=== PATIENT | male | born 1955 | race African-American/Black ===

== ENCOUNTER 2022-09-28 19:10 | Emergency (ER) | payer SELFPAY ==
[~2022-09-28] VITALS: Ht 172.7 cm; Wt 77.0 kg
[2022-09-28] MEDS ORDERED: IPRATROPIUM BROMIDE (0.02%) 0.5MG/2.5ML NEB HHN STA (19:51)
[2022-09-28] MEDS ORDERED: ALBUTEROL (0.083%) 2.5MG/3ML NEB HHN STA (19:51)
[2022-09-28 21:36] LABS: BASOPHILS % 0.3 % (0.0-2.0); EOSINOPHILS % 0.1 % (0.0-5.0); HEMATOCRIT. 41.2 % (42.0-52.0); HEMOGLOBIN. 13.8 g/dL (14.0-18.0); LYMPHOCYTES % 8.4 % (20.0-50.0); MEAN CORPUSCULAR VOLUME 89.5 fL (80.0-94.0); MEAN PLATELET VOLUME 7.1 fl (7.4-10.4); MONOCYTES % 10.5 % (2.0-8.0); NEUTROPHILS % 80.7 % (40.0-76.0); PLATELET 272 x1000/uL (130-400); RED CELL DISTRIBUTION WIDTH 15.2 % (11.6-14.6)
[2022-09-28 21:46] LABS: CHLORIDE 109 mEq/L (98-107)
[2022-09-28 21:56] LABS: ETHANOL BLOOD < 10 mg/dL
[2022-09-28 23:00] VITALS: BP 138/77
[2022-09-28] MEDS ORDERED: ALBU6.7H3 INH (23:21)
[2022-09-28] MEDS ORDERED: MED4 MT (23:21)
[2022-09-28] MEDS ORDERED: GUAI600T26 MT (23:21)
[2022-09-28] MEDS ORDERED: ACET-2708 MT (23:21)
[2022-09-28] MEDS ORDERED: GUAIFENESIN 600MG ER TABLET PO ONE (23:30)
== END 2022-09-29 00:14 | disposition home or self-care (01) ==
LOC: ER 19:10
DX: J40 Bronchitis, not specified as acute or chronic (principal); E11.9 Type 2 diabetes mellitus without complications; I10 Essential (primary) hypertension; F17.210 Nicotine dependence, cigarettes, uncomplicated; Z20.822 Contact with and (suspected) exposure to COVID-19
CPT/HCPCS: 36415; 71045; 80053; 80320; 83605; 83880; 84484; 85025; 87426; 93005; 94640; 99285; 99406; C9803; Z7610; G0480

== ENCOUNTER 2023-10-18 19:53 | Inpatient (IN) | payer OTHER ==
[~2023-10-18] VITALS: Ht 167.6 cm; Wt 73.0 kg
[~2023-10-18 19:53] MED LIST: ACET-2708 MT; ALBU6.7H3 INH; AMLODIPINE; GUAI600T26 MT; HYDRALAZINE; METFORMIN
[2023-10-18 20:16] VITALS: O2SAT 97
[2023-10-18] MEDS: ACETAMINOPHEN 325MG TABLET PO NR (23:00)
[2023-10-18] MEDS: METOCLOPRAMIDE HCL 10MG/2ML VIAL IV NR (23:00)
[2023-10-18 23:18] LABS: CHLORIDE 109 mEq/L (98-107); POTASSIUM 3.4 mEq/L (3.5-5.1); SODIUM 144 mEq/L (136-145)
[2023-10-18 23:19] LABS: CALCIUM 10.1 mg/dL (8.7-10.4); CARBON DIOXIDE 26 mEq/L (21-32)
[2023-10-18 23:21] LABS: BASOPHILS % 0.6 % (0.0-2.0); EOSINOPHILS % 0.7 % (0.0-5.0); HEMATOCRIT. 43.1 % (42.0-52.0); HEMOGLOBIN. 14.2 g/dL (14.0-18.0); LYMPHOCYTES % 16.7 % (20.0-50.0); MEAN CORPUSCULAR HGB CONC 32.8 g/dL (31.0-37.0); MEAN CORPUSCULAR VOLUME 88.2 fL (80.0-94.0); MEAN PLATELET VOLUME 7.6 fl (7.4-10.4); MONOCYTES % 8.1 % (2.0-8.0); NEUTROPHILS % 73.9 % (40.0-76.0); PLATELET 282 x1000/uL (130-400); RED BLOOD CELL COUNT 4.88 mill/uL (4.7-6.1); RED CELL DISTRIBUTION WIDTH 14.8 % (11.6-14.6); WHITE BLOOD COUNT 7.5 x1000/uL (4.5-11.0)
[2023-10-18 23:24] LABS: CREATININE 1.1 mg/dL (0.6-1.3); GLUCOSE 111 mg/dL (70-105); TROPONIN I HIGH SENSITIVITY 29 ng/L (3.0-53); UREA NITROGEN BLOOD 11 mg/dL (9-23)
[2023-10-18 23:26] LABS: *AMPHETAMINES SCREEN URINE NEGATIVE (NEGATIVE); *BARBITURATES SCREEN URINE NEGATIVE (NEGATIVE); *BENZODIAZEPINES SCREEN URINE NEGATIVE (NEGATIVE); *COCAINE SCREEN URINE NEGATIVE (NEGATIVE); ALANINE AMINOTRANSFERASE 16 IU/L (10-49); ALBUMIN 4.8 g/dL (3.2-4.8); ASPARTATE AMINOTRANSFERASE 19 IU/L (<34); BILIRUBIN DIRECT 0.1 mg/dL (<=3.0); BILIRUBIN TOTAL 0.3 mg/dL (0.1-1.0); CANNABINOID URINE SCREEN NEGATIVE (NEGATIVE); ECSTASY MDMA SCREEN URINE NEGATIVE (NEGATIVE); METHADONE URINE SCREEN NEGATIVE (NEGATIVE); OPIATES URINE SCREEN NEGATIVE (NEGATIVE); PHENCYCLIDINE URINE SCREEN NEGATIVE (NEGATIVE)
[2023-10-18 23:37] LABS: ETHANOL BLOOD < 10 mg/dL (<10)
[2023-10-19] MEDS: SODIUM CHLORIDE 0.9% 1,000 ML IV ONE (01:26)
[2023-10-19] MEDS: ACETAMINOPHEN 325MG TABLET PO STA (01:26)
[2023-10-19] MEDS: ASPIRIN 325MG EC TABLET PO ONE (01:27)
[2023-10-19] MEDS: METOCLOPRAMIDE HCL 10MG/2ML VIAL IV ONE (01:27)
[2023-10-19 04:10] VITALS: BP 177/94; PULSE 60; RESP 18; TEMP 98.2
[2023-10-19] MEDS ORDERED: KETOROLAC 15MG/ML VIAL IV PRN (06:30)
[2023-10-19] MEDS ORDERED: ONDANSETRON HCL 4MG/2ML INJ IV PRN (06:30)
[2023-10-19] MEDS ORDERED: GUAIFENESIN 200MG/10ML SUGAR FREE UDC PO PRN ×2 (06:30→08:30)
[2023-10-19] MEDS ORDERED: CLONIDINE 0.1MG TABLET PO PRN (06:30)
[2023-10-19] MEDS ORDERED: MAGNESIUM/ALUMINUM HYDROXIDE/SIMETHICONE 30ML UDC PO PRN (06:30)
[2023-10-19] MEDS ORDERED: ACETAMINOPHEN 325MG TABLET PO PRN (06:30)
[2023-10-19] MEDS ORDERED: DEXTROSE 50% WATER 50ML SYRINGE IV PRN (06:30)
[2023-10-19] MEDS ORDERED: IPRATROPIUM/ALBUTEROL 0.5-3(2.5)MG/3ML NEB HHN PRN (06:30)
[2023-10-19] MEDS ORDERED: DOCUSATE SODIUM 100MG CAPSULE PO PRN (06:30)
[2023-10-19] MEDS ORDERED: BLOOD SUGAR DIAGNOSTIC STRIP TEST SCH (07:10)
[2023-10-19] MEDS ORDERED: INSULIN LISPRO 100 UNITS/ML SUBCUT SCH (07:40)
[2023-10-19] MEDS: POTASSIUM CHLORIDE 10MEQ TABLET SR PO NR (07:44)
[2023-10-19] MEDS ORDERED: NITROGLYCERIN 0.4MG TABLET SL SL PRN (08:30)
[2023-10-19 08:56] LABS: CHLORIDE 109 mEq/L (98-107); POTASSIUM 3.7 mEq/L (3.5-5.1); SODIUM 142 mEq/L (136-145)
[2023-10-19 08:57] LABS: CALCIUM 9.8 mg/dL (8.7-10.4); CARBON DIOXIDE 26 mEq/L (21-32)
[2023-10-19] MEDS ORDERED: THROAT LOZENGES-BENZOCAINE/MENTH/CETYLPYRD CL LOZENGES MM PRN (09:00)
[2023-10-19] MEDS ORDERED: AMLODIPINE 5MG TABLET PO SCH (09:00)
[2023-10-19] MEDS ORDERED: ASPIRIN 81MG TABLET PO SCH (09:00)
[2023-10-19] MEDS ORDERED: HYDRALAZINE HCL 10MG TABLET PO SCH (09:00)
[2023-10-19 09:02] LABS: CREATININE 1.1 mg/dL (0.6-1.3); GLUCOSE 133 mg/dL (70-105); UREA NITROGEN BLOOD 10 mg/dL (9-23)
[2023-10-19 09:03] LABS: TROPONIN I HIGH SENSITIVITY 30 ng/L (3.0-53)
[2023-10-19] MEDS ORDERED: ENOXAPARIN 40MG/0.4ML SYR SUBCUT SCH (10:00)
[2023-10-19 11:24] LABS: CLARITY URINE CLEAR (CLEAR); COLOR URINE YELLOW (YELLOW); GLUCOSE URINE NEGATIVE (NEGATIVE); KETONES URINE NEGATIVE (NEGATIVE); LEUKOCYTE ESTERASE URINE NEGATIVE (NEGATIVE); NITRITE URINE NEGATIVE (NEGATIVE); OCCULT BLOOD URINE NEGATIVE (NEGATIVE); PH URINE 5.5 (4.5-8.0); PROTEIN URINE NEGATIVE (NEGATIVE); SPECIFIC GRAVITY URINE 1.008 (1.005-1.030); UROBILINOGEN URINE 0.2 E.U./dL (0.2-1.0)
[2023-10-20] MEDS ORDERED: LEVOTHYROXINE SODIUM 25MCG TABLET PO SCH (07:10)
== END 2023-10-19 09:59 | disposition left against medical advice (07) | DRG 103 ==
LOC: ER 19:53 → 8WST 10-19 00:38
PROVIDERS: ADMIT Hospitalist; ATTEND Hospitalist
DX: R51.9 Headache, unspecified (principal); I20.89 Other forms of angina pectoris; E87.6 Hypokalemia; R07.89 Other chest pain; E03.9 Hypothyroidism, unspecified; E11.9 Type 2 diabetes mellitus without complications; F17.200 Nicotine dependence, unspecified, uncomplicated; I10 Essential (primary) hypertension; Z79.899 Other long term (current) drug therapy
CPT/HCPCS: 36415; 71045; 80048; 80076; 80305; 80320; 81003; 83036; 83880; 84439; 84484; 85025; 93005; 99285; J2765; J7030; G0480

== ENCOUNTER 2024-09-23 05:54 | Emergency (ER) | payer MEDICARE, OTHER ==
[~2024-09-23] VITALS: Ht 165.1 cm; Wt 69.0 kg
[2024-09-23 05:56] VITALS: O2SAT 99
[2024-09-23] MEDS: ACETAMINOPHEN 325MG TABLET PO ONE (06:22)
[2024-09-23] MEDS: NAPHAZOLINE HCL/PHENIR MAL OPHTH SOLN 15ML BOTHEYE STA (06:59)
[2024-09-23] MEDS ORDERED: TOPUD PO (07:14)
[2024-09-23 07:24] VITALS: BP 143/84; PULSE 87; RESP 18; TEMP 36.7; O2SAT 99
== END 2024-09-23 08:10 | disposition home or self-care (01) ==
LOC: ER 05:54
DX: J02.8 Acute pharyngitis due to other specified organisms (principal); I10 Essential (primary) hypertension; R68.89 Other general symptoms and signs; Z79.899 Other long term (current) drug therapy
CPT/HCPCS: 82962; 87070; 87430; 99283